=== PATIENT | female | born 1990 | race Caucasian/White ===

== ENCOUNTER 2019-05-17 19:58 | Emergency (ER) | payer OTHER ==
[~2019-05-17] VITALS: Ht 170.2 cm; Wt 47.6 kg
--- NOTE | 2019-05-17 20:50 | NUR ---
Patient is Has type 1 DM requesting for refill for Humalog to refill insulin pump.
[2019-05-17] MEDS ORDERED: INSULIN LISPRO 300 UNIT/3 ML VIAL SQ ONE (21:43)
[2019-05-17] MEDS: MISCELLANEOUS MED XX ONE (21:51)
--- NOTE | 2019-05-17 21:52 | NUR ---
Patient does not wish to proceed with medical care recommended by Dr. Weaver. Patient given information related to possible complications, up to and including , which could occur as a result of leaving the hospital at this time. Patient verbalizes understanding of risks involved due to leaving against medical advice. Patient has signed AMA form. Patient is ambulatory with steady gait. Refuses offer of assisted placement. Patient given list of available shelters in surrounding area. Patient provided hospital sandwich and juice per pt request.
[2019-05-17 21:56] VITALS: BP 114/77
== END 2019-05-17 21:56 | disposition left against medical advice (07) ==
LOC: ER 20:06
DX: E10.65 Type 1 diabetes mellitus with hyperglycemia (principal); F17.200 Nicotine dependence, unspecified, uncomplicated; F11.10 Opioid abuse, uncomplicated; F15.10 Other stimulant abuse, uncomplicated; F12.10 Cannabis abuse, uncomplicated; Z59.0 Homelessness
CPT/HCPCS: A4663

== ENCOUNTER 2019-08-25 16:40 | Inpatient (IN) | payer OTHER ==
[~2019-08-25] VITALS: Ht 170.2 cm; Wt 48.5 kg
[2019-08-25] MEDS ORDERED: NOVOLOG INSULIN PUMP (16:51)
[2019-08-25 17:00] LABS: BASOPHILS % (AUTO) 0.4 % (0.0-2.0); EOSINOPHILS % (AUTO) 0.1 % (0.0-7.0); HEMATOCRIT 30.3 % (31.2-41.9); HEMOGLOBIN 10.1 g/dL (10.9-14.3); LYMPHOCYTES # (AUTO) 1.2 K/uL (20.0-40.0); LYMPHOCYTES % (AUTO) 12.4 % (20.5-51.5); MEAN CORPUSCULAR HEMOGLOBIN 30.5 uug (24.7-32.8); MEAN CORPUSCULAR HGB CONC 33 g/dL (32.3-35.6); MEAN CORPUSCULAR VOLUME 91.7 fL (75.5-95.3); MONOCYTES # (AUTO) 0.6 K/uL (2.0-10.0); MONOCYTES % (AUTO) 6.2 % (0.0-11.0); NEUTROPHILS % (AUTO) 80.9 % (38.5-71.5); PLATELET COUNT (AUTO) 343 K/uL (179-408); WHITE BLOOD COUNT (AUTO) 9.9 K/uL (3.8-11.8)
[2019-08-25 17:08] LABS: CREATININE 0.7 mg/dL (0.6-1.3); POTASSIUM 4.1 mmol/L (3.5-5.1)
[2019-08-25] MEDS ORDERED: SWABABLE VALVE TRANSFER SET EA MC ONE (17:40)
[2019-08-25] MEDS ORDERED: IV NORMAL SALINE 250 ML IV ONE (17:41)
[2019-08-25] MEDS ORDERED: IOHEXOL 300MG/ML 100 ML INFUS..BTL ONE (17:41)
[2019-08-25] MEDS ORDERED: KETOROLAC TROMETHAMINE 15 MG INJ ONE (18:14)
[2019-08-25] MEDS ORDERED: ONDANSETRON 4 MG/2 ML VIAL IV ONE (18:15)
[2019-08-25] MEDS ORDERED: HYDROCODONE/APAP 5-325MG TABLET PO ONE (18:15)
[2019-08-25] MEDS ORDERED: HYDROCODONE/APAP 5-325MG TABLET ONE (18:15)
[2019-08-25] MEDS ORDERED: IV NORMAL SALINE 500 ML BAG IV ONE (18:15)
[2019-08-25] MEDS ORDERED: IV NORMAL SALINE 1000 ML BAG IV ONE (18:15)
[2019-08-25] MEDS ORDERED: KETOROLAC TROMETHAMINE 15 MG INJ IVP ONE (18:15)
[2019-08-25] MEDS ORDERED: ONDANSETRON 4 MG/2 ML VIAL ONE (18:19)
[2019-08-25] MEDS ORDERED: ONDANSETRON 4 MG/2 ML VIAL IV PRN (20:00)
[2019-08-25] MEDS ORDERED: Z GUARD REMEDY PASTE 57 GM TUBE TOP PRN (20:00)
[2019-08-25] MEDS ORDERED: MAGNESIUM HYDROXIDE 30 ML LIQUID UDC PO PRN (20:00)
[2019-08-25 20:07] LABS: BILIRUBIN,DIRECT 0.1 mg/dL (0.0-0.2); BILIRUBIN,TOTAL 0.2 mg/dL (0.2-1.0)
[2019-08-25 20:43] VITALS: BP 111/58
[2019-08-25] MEDS ORDERED: PIPERACILLIN/TAZOBACTAM/D5W 100 ML IV ONE (21:21)
[2019-08-25] MEDS: PIPERACILLIN SODIUM/TAZOBACTAM 3.375 G in IV DEXTROSE 5% 50 ML IV SCH (21:59)
[2019-08-25] MEDS: IV 1/2NS 1000 ML 1,000 ML IV PRN (22:00)
[2019-08-25] MEDS ORDERED: VANCOMYCIN IV 1,000 MG in IV NORMAL SALINE 250 ML IV SCH (22:00)
[2019-08-25] MEDS: HYDROCODONE/APAP 5-325MG TABLET PO PRN (22:25)
[2019-08-26] VITALS: BP 120/58
[2019-08-26] MEDS: BLOOD SUGAR DIAGNOSTIC 1 EACH STRIP VI SCH ×5 (00:50→21:56)
[2019-08-26] MEDS: INSULIN REGULAR, HUMAN 300 UNITS/3 ML VIAL SQ PRN ×2 (00:53→22:01)
[2019-08-26] MEDS: ACETAMINOPHEN 325 MG TABLET PO PRN (01:30)
[2019-08-26] MEDS: PIPERACILLIN SODIUM/TAZOBACTAM 3.375 G in IV DEXTROSE 5% 50 ML IV SCH ×3 (03:07→21:44)
[2019-08-26 04:17] VITALS: BP 115/62
[2019-08-26] MEDS: HYDROCODONE/APAP 5-325MG TABLET PO PRN (04:27)
[2019-08-26] MEDS ORDERED: OXYCODONE/APAP 5-325 MG TABLET PO PRN (06:00)
[2019-08-26] MEDS ORDERED: VANCOMYCIN IV 1,000 MG in IV NORMAL SALINE 250 ML IV ONE (06:30)
[2019-08-26 06:35] LABS: BASOPHILS % (AUTO) 0.3 % (0.0-2.0); EOSINOPHILS % (AUTO) 0.5 % (0.0-7.0); HEMATOCRIT 31.3 % (31.2-41.9); HEMOGLOBIN 10.3 g/dL (10.9-14.3); LYMPHOCYTES # (AUTO) 1.6 K/uL (20.0-40.0); LYMPHOCYTES % (AUTO) 16.4 % (20.5-51.5); MEAN CORPUSCULAR HEMOGLOBIN 30.6 uug (24.7-32.8); MEAN CORPUSCULAR HGB CONC 33 g/dL (32.3-35.6); MEAN CORPUSCULAR VOLUME 92.8 fL (75.5-95.3); MONOCYTES # (AUTO) 0.8 K/uL (2.0-10.0); MONOCYTES % (AUTO) 8.6 % (0.0-11.0); NEUTROPHILS # (AUTO) 7.1 K/uL (1.8-8.9); NEUTROPHILS % (AUTO) 74.2 % (38.5-71.5); PLATELET COUNT (AUTO) 380 K/uL (179-408); RED BLOOD CELL COUNT(AUTO) 3.37 MIL/uL (3.63-4.92); WHITE BLOOD COUNT (AUTO) 9.5 K/uL (3.8-11.8)
[2019-08-26 06:52] LABS: CREATININE 0.7 mg/dL (0.6-1.3); PHOSPHOROUS 2.9 mg/dL (2.5-4.9); POTASSIUM 4.2 mmol/L (3.5-5.1)
[2019-08-26 07:29] LABS: THYROID STIMULATING HORMONE 0.886 mIU/mL (0.358-3.740)
[2019-08-26] MEDS: INSULIN REGULAR, HUMAN 300 UNIT/3 ML VIAL SQ PRN ×3 (08:26→16:50)
[2019-08-26] MEDS ORDERED: INSULIN REGULAR, HUMAN 300 UNIT/3 ML VIAL SQ PRN (09:00)
[2019-08-26] MEDS ORDERED: DEXTROSE 50% 50 ML DISP.SYRIN IV PRN ×2 (09:00)
[2019-08-26] MEDS ORDERED: INSULIN REGULAR, HUMAN 300 UNITS/3 ML VIAL SQ PRN (09:00)
[2019-08-26] MEDS: MORPHINE SULFATE 2 MG/1 ML DISP.SYRIN IV PRN (09:32)
[2019-08-26 11:30] LABS: *BILIRUBIN,URIN NEGATIVE (NEGATIVE); *BLOOD, URINE NEGATIVE (NEGATIVE); *CLARITY,URINE CLEAR (CLEAR); *COLOR,URINE YELLOW (YELLOW); *KETONES,URINE NEGATIVE (NEGATIVE); *UROBILINOGEN,URINE 0.2 E.U./dl (NORMAL); LEUKOCYTE ESTERASE ,URINE NEGATIVE (NEGATIVE); NITRITE, URINE NEGATIVE (NEGATIVE); UGLUCOSE 2+ (NEGATIVE)
[2019-08-26] MEDS ORDERED: BLOOD SUGAR DIAGNOSTIC 1 EACH STRIP VI SCH (11:30)
[2019-08-26 11:36] VITALS: BP 112/65
[2019-08-26 11:48] LABS: BACTERIA,URINE NONE SEEN /HPF (NONE SEEN); RBC,URINE NONE SEEN /HPF (0-3); SQUAMOUS EPITHELIAL CELL,UR FEW /HPF (NONE SEEN); WBC,URINE 0-3 /HPF (0-3)
[2019-08-26 11:52] LABS: *AMPHETAMINE, URINE POSITIVE (NEGATIVE); *BARBITURATE, URINE NEGATIVE (NEGATIVE); *CANNABINOID, URINE NEGATIVE (NEGATIVE); *COCCAINE, URINE NEGATIVE (NEGATIVE); *OPIATE, URINE POSITIVE (NEGATIVE)
[2019-08-26] MEDS: KETOROLAC TROMETHAMINE 15 MG INJ IVP PRN (11:52)
[2019-08-26] MEDS: METHADONE HCL 10 MG TABLET PO SCH ×2 (13:46→16:48)
[2019-08-26] MEDS: GABAPENTIN 300 MG CAPSULE PO SCH ×2 (14:00→16:11)
[2019-08-26 16:08] VITALS: BP 93/63
[2019-08-26 18:10] LABS: *PHENCYCLIDINE SCREEN,URINE NEGATIVE (NEGATIVE)
[2019-08-26] MEDS: IV 1/2NS 1000 ML 1,000 ML IV PRN (18:22)
[2019-08-26] MEDS: VANCOMYCIN IV 750 MG in IV DEXTROSE 5% 250 ML IV SCH (19:55)
[2019-08-26 20:36] VITALS: BP 115/64
[2019-08-26] MEDS ORDERED: INSULIN GLARGINE,HUM 300 UNITS/3 ML CARTRIDGE SQ SCH (21:00)
[2019-08-27] VITALS: BP 94/59
[2019-08-27] MEDS: MORPHINE SULFATE 2 MG/1 ML DISP.SYRIN IV PRN ×3 (00:21→22:39)
[2019-08-27] MEDS: KETOROLAC TROMETHAMINE 15 MG INJ IVP PRN (02:11)
[2019-08-27 04:00] VITALS: BP 99/54
[2019-08-27] MEDS: PIPERACILLIN SODIUM/TAZOBACTAM 3.375 G in IV DEXTROSE 5% 50 ML IV SCH ×3 (06:33→22:07)
[2019-08-27] MEDS: BLOOD SUGAR DIAGNOSTIC 1 EACH STRIP VI SCH ×4 (06:51→21:52)
[2019-08-27] MEDS: INSULIN REGULAR, HUMAN 300 UNIT/3 ML VIAL SQ PRN ×3 (06:56→16:32)
[2019-08-27 07:39] LABS: EOSINOPHILS # (AUTO) 0.1 K/uL (0.0-0.7); MONOCYTES # (AUTO) 0.5 K/uL (2.0-10.0); NEUTROPHILS # (AUTO) 7.3 K/uL (1.8-8.9)
[2019-08-27 07:53] LABS: BASOPHILS % (AUTO) 0.4 % (0.0-2.0); EOSINOPHILS % (AUTO) 0.8 % (0.0-7.0); LYMPHOCYTES # (AUTO) 2.4 K/uL (20.0-40.0); LYMPHOCYTES % (AUTO) 23.1 % (20.5-51.5); MEAN CORPUSCULAR HEMOGLOBIN 30.9 uug (24.7-32.8); MEAN CORPUSCULAR HGB CONC 33 g/dL (32.3-35.6); MEAN CORPUSCULAR VOLUME 93.7 fL (75.5-95.3); NEUTROPHILS % (AUTO) 70.7 % (38.5-71.5); PLATELET COUNT (AUTO) 313 K/uL (179-408); RED BLOOD CELL COUNT(AUTO) 2.78 MIL/uL (3.63-4.92); WHITE BLOOD COUNT (AUTO) 10.4 K/uL (3.8-11.8)
[2019-08-27 07:54] LABS: HEMATOCRIT 26.1 % (31.2-41.9); HEMOGLOBIN 8.6 g/dL (10.9-14.3)
[2019-08-27] MEDS: VANCOMYCIN IV 750 MG in IV DEXTROSE 5% 250 ML IV SCH (08:15)
[2019-08-27] MEDS: METHADONE HCL 10 MG TABLET PO SCH ×2 (08:16→16:18)
[2019-08-27] MEDS: GABAPENTIN 300 MG CAPSULE PO SCH ×3 (08:17→16:21)
[2019-08-27 11:14] VITALS: BP 98/55
[2019-08-27] MEDS: IV 1/2NS 1000 ML 1,000 ML IV PRN (15:12)
[2019-08-27 15:39] VITALS: BP 122/67
[2019-08-27 20:08] VITALS: BP 120/76
[2019-08-27] MEDS: ACETAMINOPHEN 325 MG TABLET PO PRN (21:36)
[2019-08-27] MEDS: INSULIN REGULAR, HUMAN 300 UNITS/3 ML VIAL SQ PRN (21:50)
[2019-08-27] MEDS: INSULIN GLARGINE,HUM 300 UNITS/3 ML CARTRIDGE SQ SCH (21:51)
[2019-08-28] MEDS: VANCOMYCIN IV 750 MG in IV DEXTROSE 5% 250 ML IV SCH ×3 (00:06→15:55)
[2019-08-28 00:21] VITALS: BP 115/67
[2019-08-28 04:00] VITALS: BP 102/62
[2019-08-28] MEDS: ACETAMINOPHEN 325 MG TABLET PO PRN ×2 (04:55→18:09)
[2019-08-28] MEDS: HYDROCODONE/APAP 5-325MG TABLET PO PRN ×2 (04:55→13:30)
[2019-08-28] MEDS: IV 1/2NS 1000 ML 1,000 ML IV PRN ×2 (06:20→21:53)
[2019-08-28] MEDS: PIPERACILLIN SODIUM/TAZOBACTAM 3.375 G in IV DEXTROSE 5% 50 ML IV SCH ×3 (06:21→21:51)
[2019-08-28] MEDS: BLOOD SUGAR DIAGNOSTIC 1 EACH STRIP VI SCH ×4 (06:31→21:27)
[2019-08-28 06:56] LABS: CREATININE 0.9 mg/dL (0.6-1.3); MAGNESIUM 1.9 mg/dL (1.8-2.4); PHOSPHOROUS 3.4 mg/dL (2.5-4.9); POTASSIUM 4.5 mmol/L (3.5-5.1)
[2019-08-28 07:25] LABS: BASOPHILS # (AUTO) 0.1 K/uL (0.0-8.0); BASOPHILS % (AUTO) 0.4 % (0.0-2.0); EOSINOPHILS # (AUTO) 0.1 K/uL (0.0-0.7); HEMATOCRIT 28.7 % (31.2-41.9); HEMOGLOBIN 9.3 g/dL (10.9-14.3); LYMPHOCYTES # (AUTO) 2.9 K/uL (20.0-40.0); LYMPHOCYTES % (AUTO) 21.6 % (20.5-51.5); MEAN CORPUSCULAR HEMOGLOBIN 29.5 uug (24.7-32.8); MEAN CORPUSCULAR HGB CONC 33 g/dL (32.3-35.6); MEAN CORPUSCULAR VOLUME 90.9 fL (75.5-95.3); MONOCYTES # (AUTO) 0.8 K/uL (2.0-10.0); MONOCYTES % (AUTO) 6.4 % (0.0-11.0); NEUTROPHILS # (AUTO) 9.4 K/uL (1.8-8.9); NEUTROPHILS % (AUTO) 70.6 % (38.5-71.5); PLATELET COUNT (AUTO) 457 K/uL (179-408); RED BLOOD CELL COUNT(AUTO) 3.16 MIL/uL (3.63-4.92); WHITE BLOOD COUNT (AUTO) 13.3 K/uL (3.8-11.8)
[2019-08-28] MEDS: GABAPENTIN 300 MG CAPSULE PO SCH ×3 (08:15→17:00)
[2019-08-28] MEDS: METHADONE HCL 10 MG TABLET PO SCH ×2 (08:15→16:59)
[2019-08-28] MEDS: INSULIN REGULAR, HUMAN 300 UNIT/3 ML VIAL SQ PRN ×3 (08:19→17:05)
[2019-08-28 11:00] VITALS: BP 102/62
[2019-08-28] MEDS: MORPHINE SULFATE 2 MG/1 ML DISP.SYRIN IV PRN (11:51)
[2019-08-28 15:00] VITALS: BP 98/60
[2019-08-28 16:30] VITALS: BP 100/58
[2019-08-28 20:13] VITALS: BP 101/57
[2019-08-28] MEDS: TEMAZEPAM 7.5 MG CAPSULE PO SCH ×3 (21:00→23:18)
[2019-08-28] MEDS: INSULIN GLARGINE,HUM 300 UNITS/3 ML CARTRIDGE SQ SCH (21:31)
[2019-08-28] MEDS: INSULIN REGULAR, HUMAN 300 UNITS/3 ML VIAL SQ PRN (21:32)
[2019-08-28] MEDS ORDERED: IV NORMAL SALINE 500 ML IV ONE (23:45)
[2019-08-29] MEDS: ACETAMINOPHEN 325 MG TABLET PO PRN (01:15)
[2019-08-29] MEDS: ZOLPIDEM 5 MG TABLET PO PRN (01:23)
[2019-08-29] MEDS: MORPHINE SULFATE 2 MG/1 ML DISP.SYRIN IV PRN ×4 (03:51→19:22)
[2019-08-29] MEDS: PIPERACILLIN SODIUM/TAZOBACTAM 3.375 G in IV DEXTROSE 5% 50 ML IV SCH ×3 (05:00→22:10)
[2019-08-29 05:46] VITALS: BP 105/54
[2019-08-29] MEDS: VANCOMYCIN IV 750 MG in IV DEXTROSE 5% 250 ML IV SCH ×2 (06:02→20:10)
[2019-08-29] MEDS: BLOOD SUGAR DIAGNOSTIC 1 EACH STRIP VI SCH ×4 (06:31→20:20)
[2019-08-29] MEDS: INSULIN REGULAR, HUMAN 300 UNIT/3 ML VIAL SQ PRN ×3 (08:18→17:03)
[2019-08-29] MEDS: INSULIN GLARGINE,HUM 300 UNITS/3 ML CARTRIDGE SQ SCH ×2 (08:20→20:20)
[2019-08-29] MEDS: METHADONE HCL 10 MG TABLET PO SCH ×2 (08:26→17:06)
[2019-08-29] MEDS: GABAPENTIN 300 MG CAPSULE PO SCH ×3 (08:27→17:05)
[2019-08-29 11:32] VITALS: BP 109/55
[2019-08-29] MEDS ORDERED: [UNRECOGNIZED DRUG - OTHER] XX PRN (13:15)
[2019-08-29] MEDS ORDERED: DEXTROSE 50% 50 ML DISP.SYRIN IV PRN (13:15)
[2019-08-29 15:44] VITALS: BP 112/67
[2019-08-29] MEDS: MICAFUNGIN SODIUM 100 MG in IV NORMAL SALINE 100 ML IV SCH (15:47)
[2019-08-29] MEDS: KETOROLAC TROMETHAMINE 15 MG INJ IVP PRN (15:51)
[2019-08-29 20:17] VITALS: BP 110/62
[2019-08-29] MEDS: INSULIN REGULAR, HUMAN 300 UNITS/3 ML VIAL SQ PRN (20:19)
[2019-08-29] MEDS: HYDROCODONE/APAP 5-325MG TABLET PO PRN (21:06)
[2019-08-29] MEDS: TEMAZEPAM 15 MG CAPSULE PO PRN (22:10)
[2019-08-30] MEDS: IV NS 1000 ML 1,000 ML IV PRN ×2 (03:58→17:10)
[2019-08-30] MEDS: PIPERACILLIN SODIUM/TAZOBACTAM 3.375 G in IV DEXTROSE 5% 50 ML IV SCH (05:41)
[2019-08-30 06:24] VITALS: BP 110/64
[2019-08-30] MEDS: BLOOD SUGAR DIAGNOSTIC 1 EACH STRIP VI SCH ×5 (06:34→20:42)
[2019-08-30] MEDS: MORPHINE SULFATE 2 MG/1 ML DISP.SYRIN IV PRN ×2 (07:36→16:47)
[2019-08-30] MEDS: INSULIN REGULAR, HUMAN 300 UNIT/3 ML VIAL SQ PRN ×3 (07:41→16:42)
[2019-08-30] MEDS: INSULIN GLARGINE,HUM 300 UNITS/3 ML CARTRIDGE SQ SCH ×2 (08:37→20:46)
[2019-08-30] MEDS: GABAPENTIN 300 MG CAPSULE PO SCH ×3 (08:37→16:42)
[2019-08-30] MEDS: METHADONE HCL 10 MG TABLET PO SCH ×2 (08:41→19:00)
[2019-08-30 11:30] VITALS: BP 104/63
[2019-08-30] MEDS: HYDROCODONE/APAP 5-325MG TABLET PO PRN ×2 (12:23→21:45)
[2019-08-30] MEDS ORDERED: METHADONE HCL 10 MG TABLET PO ONE (12:45)
[2019-08-30] MEDS: CLINDAMYCIN PHOSPHATE IV 900 MG in IV DEXTROSE 5% 100 ML IV SCH ×2 (13:58→21:46)
[2019-08-30] MEDS: MICAFUNGIN SODIUM 100 MG in IV NORMAL SALINE 100 ML IV SCH (15:05)
[2019-08-30 15:38] VITALS: BP 115/68
[2019-08-30] MEDS: CEFEPIME HCL 2 G in IV DEXTROSE 5% 100 ML IV SCH ×2 (16:22→23:50)
[2019-08-30 20:03] VITALS: BP 113/65
[2019-08-30] MEDS: INSULIN REGULAR, HUMAN 300 UNITS/3 ML VIAL SQ PRN (20:47)
[2019-08-30] MEDS ORDERED: METHADONE HCL 10 MG TABLET PO SCH (21:00)
[2019-08-31] MEDS: MORPHINE SULFATE 2 MG/1 ML DISP.SYRIN IV PRN ×3 (01:17→21:44)
[2019-08-31] MEDS: TEMAZEPAM 15 MG CAPSULE PO PRN (02:01)
[2019-08-31] MEDS: IV NS 1000 ML 1,000 ML IV PRN ×3 (02:58→22:44)
[2019-08-31] MEDS: CLINDAMYCIN PHOSPHATE IV 900 MG in IV DEXTROSE 5% 100 ML IV SCH ×3 (05:54→21:26)
[2019-08-31 06:30] VITALS: BP 105/64
[2019-08-31] MEDS: BLOOD SUGAR DIAGNOSTIC 1 EACH STRIP VI SCH ×4 (06:38→20:21)
[2019-08-31] MEDS: INSULIN REGULAR, HUMAN 300 UNIT/3 ML VIAL SQ PRN ×3 (07:34→16:53)
[2019-08-31] MEDS: CEFEPIME HCL 2 G in IV DEXTROSE 5% 100 ML IV SCH ×3 (07:36→23:00)
[2019-08-31] MEDS ORDERED: IOHEXOL 300MG/ML 100 ML INFUS..BTL ONE (07:43)
[2019-08-31] MEDS ORDERED: SWABABLE VALVE TRANSFER SET EA MC ONE (07:43)
[2019-08-31] MEDS ORDERED: IV NORMAL SALINE 250 ML IV ONE (07:43)
[2019-08-31] MEDS: HYDROCODONE/APAP 5-325MG TABLET PO PRN (08:03)
[2019-08-31] MEDS: INSULIN GLARGINE,HUM 300 UNITS/3 ML CARTRIDGE SQ SCH ×2 (08:56→20:29)
[2019-08-31] MEDS: GABAPENTIN 300 MG CAPSULE PO SCH ×3 (08:59→16:54)
[2019-08-31] MEDS: METHADONE HCL 10 MG TABLET PO SCH ×2 (08:59→16:54)
[2019-08-31 09:48] LABS: BASOPHILS # (AUTO) 0.1 K/uL (0.0-8.0); BASOPHILS % (AUTO) 0.7 % (0.0-2.0); EOSINOPHILS # (AUTO) 0.2 K/uL (0.0-0.7); EOSINOPHILS % (AUTO) 1.8 % (0.0-7.0); HEMATOCRIT 23.3 % (31.2-41.9); HEMOGLOBIN 7.6 g/dL (10.9-14.3); LYMPHOCYTES # (AUTO) 2.2 K/uL (20.0-40.0); LYMPHOCYTES % (AUTO) 18.2 % (20.5-51.5); MEAN CORPUSCULAR HGB CONC 33 g/dL (32.3-35.6); MEAN CORPUSCULAR VOLUME 91.8 fL (75.5-95.3); MONOCYTES # (AUTO) 0.8 K/uL (2.0-10.0); MONOCYTES % (AUTO) 6.8 % (0.0-11.0); NEUTROPHILS # (AUTO) 8.9 K/uL (1.8-8.9); NEUTROPHILS % (AUTO) 72.5 % (38.5-71.5); PLATELET COUNT (AUTO) 532 K/uL (179-408); RED BLOOD CELL COUNT(AUTO) 2.54 MIL/uL (3.63-4.92); WHITE BLOOD COUNT (AUTO) 12.3 K/uL (3.8-11.8)
[2019-08-31 10:08] LABS: CREATININE 0.7 mg/dL (0.6-1.3); MAGNESIUM 1.8 mg/dL (1.8-2.4); PHOSPHOROUS 3.7 mg/dL (2.5-4.9)
[2019-08-31 10:50] VITALS: BP 101/52
[2019-08-31] MEDS: MICAFUNGIN SODIUM 100 MG in IV NORMAL SALINE 100 ML IV SCH (15:01)
[2019-08-31 16:04] VITALS: BP 106/65
[2019-08-31] MEDS: ACETAMINOPHEN 325 MG TABLET PO PRN (20:07)
[2019-08-31] MEDS: INSULIN REGULAR, HUMAN 300 UNITS/3 ML VIAL SQ PRN (20:30)
[2019-08-31 20:41] VITALS: BP 105/64
[2019-08-31] MEDS: ZOLPIDEM 5 MG TABLET PO PRN (21:26)
[2019-09-01] VITALS (10 sets, daily range): BP systolic 64–104; BP diastolic 46–67
[2019-09-01] MEDS: HYDROCODONE/APAP 5-325MG TABLET PO PRN ×2 (01:06→13:42)
[2019-09-01] MEDS: CLINDAMYCIN PHOSPHATE IV 900 MG in IV DEXTROSE 5% 100 ML IV SCH ×3 (05:04→21:25)
[2019-09-01] MEDS: IV NS 1000 ML 1,000 ML IV PRN ×2 (05:29→22:54)
[2019-09-01] MEDS: BLOOD SUGAR DIAGNOSTIC 1 EACH STRIP VI SCH ×4 (06:36→21:46)
[2019-09-01 06:45] LABS: BASOPHILS % (AUTO) 0.4 % (0.0-2.0); EOSINOPHILS # (AUTO) 0.2 K/uL (0.0-0.7); EOSINOPHILS % (AUTO) 1.7 % (0.0-7.0); HEMATOCRIT 22.5 % (31.2-41.9); LYMPHOCYTES # (AUTO) 2.5 K/uL (20.0-40.0); MEAN CORPUSCULAR HEMOGLOBIN 29.8 uug (24.7-32.8); MEAN CORPUSCULAR HGB CONC 32 g/dL (32.3-35.6); MEAN CORPUSCULAR VOLUME 92.1 fL (75.5-95.3); MONOCYTES # (AUTO) 0.8 K/uL (2.0-10.0); MONOCYTES % (AUTO) 7.7 % (0.0-11.0); NEUTROPHILS # (AUTO) 6.6 K/uL (1.8-8.9); NEUTROPHILS % (AUTO) 65.2 % (38.5-71.5); PLATELET COUNT (AUTO) 539 K/uL (179-408); WHITE BLOOD COUNT (AUTO) 10.1 K/uL (3.8-11.8)
[2019-09-01] MEDS: CEFEPIME HCL 2 G in IV DEXTROSE 5% 100 ML IV SCH ×3 (07:02)
[2019-09-01 07:06] LABS: HEMOGLOBIN 7.3 g/dL (10.9-14.3); RED BLOOD CELL COUNT(AUTO) 2.44 MIL/uL (3.63-4.92)
[2019-09-01 08:04] LABS: CREATININE 0.6 mg/dL (0.6-1.3); MAGNESIUM 2.1 mg/dL (1.8-2.4); PHOSPHOROUS 4.2 mg/dL (2.5-4.9)
[2019-09-01] MEDS: METHADONE HCL 10 MG TABLET PO SCH ×2 (08:13→16:51)
[2019-09-01] MEDS: GABAPENTIN 300 MG CAPSULE PO SCH ×3 (08:13→16:51)
[2019-09-01] MEDS: INSULIN GLARGINE,HUM 300 UNITS/3 ML CARTRIDGE SQ SCH ×2 (11:10→21:53)
[2019-09-01] MEDS: MORPHINE SULFATE 2 MG/1 ML DISP.SYRIN IV PRN ×2 (11:11→22:39)
[2019-09-01] MEDS: INSULIN REGULAR, HUMAN 300 UNIT/3 ML VIAL SQ PRN (16:57)
[2019-09-01] MEDS: MICAFUNGIN SODIUM 100 MG in IV NORMAL SALINE 100 ML IV SCH (19:40)
[2019-09-01] MEDS: INSULIN REGULAR, HUMAN 300 UNITS/3 ML VIAL SQ PRN (21:56)
[2019-09-01] MEDS: TEMAZEPAM 15 MG CAPSULE PO PRN (23:34)
[2019-09-02 05:03] VITALS: BP 105/54
[2019-09-02] MEDS: CLINDAMYCIN PHOSPHATE IV 900 MG in IV DEXTROSE 5% 100 ML IV SCH ×4 (05:22→22:29)
[2019-09-02 06:14] LABS: BASOPHILS % (AUTO) 0.6 % (0.0-2.0); EOSINOPHILS # (AUTO) 0.2 K/uL (0.0-0.7); EOSINOPHILS % (AUTO) 2.7 % (0.0-7.0); HEMATOCRIT 25.3 % (31.2-41.9); HEMOGLOBIN 8.4 g/dL (10.9-14.3); LYMPHOCYTES # (AUTO) 2.2 K/uL (20.0-40.0); LYMPHOCYTES % (AUTO) 27.5 % (20.5-51.5); MEAN CORPUSCULAR HEMOGLOBIN 29.3 uug (24.7-32.8); MEAN CORPUSCULAR HGB CONC 33 g/dL (32.3-35.6); MEAN CORPUSCULAR VOLUME 88.4 fL (75.5-95.3); MONOCYTES # (AUTO) 0.6 K/uL (2.0-10.0); MONOCYTES % (AUTO) 8.1 % (0.0-11.0); NEUTROPHILS # (AUTO) 4.9 K/uL (1.8-8.9); NEUTROPHILS % (AUTO) 61.1 % (38.5-71.5); PLATELET COUNT (AUTO) 549 K/uL (179-408); RED BLOOD CELL COUNT(AUTO) 2.87 MIL/uL (3.63-4.92)
[2019-09-02 06:36] LABS: CREATININE 0.7 mg/dL (0.6-1.3); MAGNESIUM 1.8 mg/dL (1.8-2.4); PHOSPHOROUS 4.1 mg/dL (2.5-4.9); POTASSIUM 4.2 mmol/L (3.5-5.1)
[2019-09-02] MEDS: IV NS 1000 ML 1,000 ML IV PRN (06:38)
[2019-09-02] MEDS: MORPHINE SULFATE 2 MG/1 ML DISP.SYRIN IV PRN (06:42)
[2019-09-02] MEDS: BLOOD SUGAR DIAGNOSTIC 1 EACH STRIP VI SCH ×4 (06:50→21:54)
[2019-09-02] MEDS: CEFEPIME HCL 2 G in IV DEXTROSE 5% 100 ML IV SCH ×2 (08:11→17:07)
[2019-09-02] MEDS: GABAPENTIN 300 MG CAPSULE PO SCH ×3 (08:12→17:07)
[2019-09-02] MEDS: METHADONE HCL 10 MG TABLET PO SCH ×2 (08:12→17:07)
[2019-09-02] MEDS: INSULIN REGULAR, HUMAN 300 UNIT/3 ML VIAL SQ PRN ×2 (08:15→12:23)
[2019-09-02] MEDS: INSULIN GLARGINE,HUM 300 UNITS/3 ML CARTRIDGE SQ SCH ×2 (08:16→21:51)
[2019-09-02 11:06] VITALS: BP 98/61
[2019-09-02 11:30] LABS: LYMPHOCYTES % (MANUAL) 35 % (20-40); MONOCYTES % (MANUAL) 2 % (2-10); NEUTROPHILS % (MANUAL) 63 % (42-75)
[2019-09-02] MEDS: ALPRAZOLAM 0.5 MG TABLET PO PRN (12:20)
[2019-09-02 15:41] VITALS: BP 100/56
[2019-09-02] MEDS: MICAFUNGIN SODIUM 100 MG in IV NORMAL SALINE 100 ML IV SCH (15:53)
[2019-09-02 19:30] VITALS: BP 104/60
[2019-09-02] MEDS: INSULIN REGULAR, HUMAN 300 UNITS/3 ML VIAL SQ PRN (21:53)
[2019-09-03] MEDS: CEFEPIME HCL 2 G in IV DEXTROSE 5% 100 ML IV SCH ×2
[2019-09-03] MEDS: ALPRAZOLAM 0.5 MG TABLET PO PRN ×3 (01:04→17:38)
[2019-09-03] MEDS: ACETAMINOPHEN 325 MG TABLET PO PRN ×2 (02:28→20:12)
[2019-09-03] MEDS: ZOLPIDEM 5 MG TABLET PO PRN (02:46)
[2019-09-03] MEDS ORDERED: CLINDAMYCIN HCL 300 MG CAPSULE ONE (04:26)
[2019-09-03] MEDS ORDERED: AMOXICILLIN-CLAVUL 875-125MG TABLET ONE (04:26)
[2019-09-03] MEDS: CLINDAMYCIN HCL 300 MG CAPSULE PO SCH ×4 (04:51→17:39)
[2019-09-03] MEDS: AMOXICILLIN-CLAVUL 875-125MG TABLET PO SCH ×2 (04:51→17:39)
[2019-09-03 04:56] VITALS: BP 96/50
[2019-09-03] MEDS: BLOOD SUGAR DIAGNOSTIC 1 EACH STRIP VI SCH ×4 (06:41→21:15)
[2019-09-03 06:59] LABS: CREATININE 0.7 mg/dL (0.6-1.3); MAGNESIUM 1.9 mg/dL (1.8-2.4); PHOSPHOROUS 4.8 mg/dL (2.5-4.9); POTASSIUM 4.8 mmol/L (3.5-5.1)
[2019-09-03] MEDS: INSULIN GLARGINE,HUM 300 UNITS/3 ML CARTRIDGE SQ SCH ×3 (09:00→21:14)
[2019-09-03 09:17] LABS: BASOPHILS # (AUTO) 0.1 K/uL (0.0-8.0); BASOPHILS % (AUTO) 0.7 % (0.0-2.0); EOSINOPHILS # (AUTO) 0.3 K/uL (0.0-0.7); EOSINOPHILS % (AUTO) 2.6 % (0.0-7.0); LYMPHOCYTES # (AUTO) 2.3 K/uL (20.0-40.0); LYMPHOCYTES % (AUTO) 22.4 % (20.5-51.5); MEAN CORPUSCULAR HEMOGLOBIN 29.4 uug (24.7-32.8); MEAN CORPUSCULAR HGB CONC 32 g/dL (32.3-35.6); MEAN CORPUSCULAR VOLUME 90.8 fL (75.5-95.3); MONOCYTES # (AUTO) 0.7 K/uL (2.0-10.0); MONOCYTES % (AUTO) 6.8 % (0.0-11.0); NEUTROPHILS % (AUTO) 67.5 % (38.5-71.5); PLATELET COUNT (AUTO) 656 K/uL (179-408); RED BLOOD CELL COUNT(AUTO) 3.34 MIL/uL (3.63-4.92)
[2019-09-03] MEDS: GABAPENTIN 300 MG CAPSULE PO SCH ×3 (09:20→17:39)
[2019-09-03] MEDS: METHADONE HCL 10 MG TABLET PO SCH ×2 (09:21→17:59)
[2019-09-03 09:42] LABS: HEMATOCRIT 30.4 % (31.2-41.9); HEMOGLOBIN 9.8 g/dL (10.9-14.3); WHITE BLOOD COUNT (AUTO) 10.3 K/uL (3.8-11.8)
[2019-09-03 11:30] VITALS: BP 100/61
[2019-09-03] MEDS: MORPHINE SULFATE 2 MG/1 ML DISP.SYRIN IV PRN ×2 (11:37→20:33)
[2019-09-03] MEDS: INSULIN REGULAR, HUMAN 300 UNIT/3 ML VIAL SQ PRN ×3 (13:06→21:14)
[2019-09-03 16:00] VITALS: BP 102/62
[2019-09-03] MEDS: MICAFUNGIN SODIUM 100 MG in IV NORMAL SALINE 100 ML IV SCH (17:37)
[2019-09-03 20:10] VITALS: BP 113/46
[2019-09-03 20:27] VITALS: BP 110/66
[2019-09-03] MEDS: IV NS 1000 ML 1,000 ML IV PRN (20:44)
[2019-09-03] MEDS: CLINDAMYCIN PHOSPHATE IV 900 MG in IV DEXTROSE 5% 100 ML IV SCH (22:23)
[2019-09-03] MEDS: CEFEPIME HCL 1 G in IV DEXTROSE 5% 50 ML IV SCH (22:24)
[2019-09-04 04:15] VITALS: BP 101/63
[2019-09-04] MEDS: MORPHINE SULFATE 2 MG/1 ML DISP.SYRIN IV PRN ×3 (04:19→21:43)
[2019-09-04] MEDS: CLINDAMYCIN PHOSPHATE IV 900 MG in IV DEXTROSE 5% 100 ML IV SCH ×3 (05:11→21:04)
[2019-09-04] MEDS: IV NS 1000 ML 1,000 ML IV PRN ×2 (05:34→19:28)
[2019-09-04] MEDS: CEFEPIME HCL 1 G in IV DEXTROSE 5% 50 ML IV SCH ×3 (05:35→22:13)
[2019-09-04] MEDS: BLOOD SUGAR DIAGNOSTIC 1 EACH STRIP VI SCH ×4 (06:35→21:37)
[2019-09-04] MEDS: INSULIN REGULAR, HUMAN 300 UNITS/3 ML VIAL SQ PRN ×2 (06:35→21:39)
[2019-09-04 06:54] LABS: BASOPHILS % (AUTO) 0.4 % (0.0-2.0); EOSINOPHILS # (AUTO) 0.3 K/uL (0.0-0.7); HEMATOCRIT 30.3 % (31.2-41.9); HEMOGLOBIN 9.9 g/dL (10.9-14.3); LYMPHOCYTES # (AUTO) 2.9 K/uL (20.0-40.0); LYMPHOCYTES % (AUTO) 20.4 % (20.5-51.5); MEAN CORPUSCULAR HEMOGLOBIN 29.6 uug (24.7-32.8); MEAN CORPUSCULAR HGB CONC 33 g/dL (32.3-35.6); MEAN CORPUSCULAR VOLUME 90.5 fL (75.5-95.3); MONOCYTES # (AUTO) 0.7 K/uL (2.0-10.0); NEUTROPHILS # (AUTO) 10.1 K/uL (1.8-8.9); NEUTROPHILS % (AUTO) 72.2 % (38.5-71.5); PLATELET COUNT (AUTO) 729 K/uL (179-408); RED BLOOD CELL COUNT(AUTO) 3.34 MIL/uL (3.63-4.92)
[2019-09-04 06:59] LABS: CREATININE 0.7 mg/dL (0.6-1.3); MAGNESIUM 2.2 mg/dL (1.8-2.4); PHOSPHOROUS 4.3 mg/dL (2.5-4.9); POTASSIUM 4.1 mmol/L (3.5-5.1)
[2019-09-04] MEDS: INSULIN GLARGINE,HUM 300 UNITS/3 ML CARTRIDGE SQ SCH ×2 (09:07→21:39)
[2019-09-04] MEDS: INSULIN REGULAR, HUMAN 300 UNIT/3 ML VIAL SQ PRN ×3 (09:17→17:41)
[2019-09-04] MEDS: METHADONE HCL 10 MG TABLET PO SCH ×2 (09:21→17:16)
[2019-09-04] MEDS: GABAPENTIN 300 MG CAPSULE PO SCH ×3 (09:21→17:16)
[2019-09-04 11:24] VITALS: BP 102/61
[2019-09-04] MEDS: ALPRAZOLAM 0.5 MG TABLET PO PRN (13:58)
[2019-09-04] MEDS: MICAFUNGIN SODIUM 100 MG in IV NORMAL SALINE 100 ML IV SCH (15:45)
[2019-09-04 15:46] VITALS: BP 93/56
[2019-09-04 20:01] VITALS: BP 114/67
[2019-09-04] MEDS: ACETAMINOPHEN 325 MG TABLET PO PRN (21:04)
[2019-09-05] MEDS: ALPRAZOLAM 0.5 MG TABLET PO PRN ×3 (01:28→21:03)
[2019-09-05 04:02] VITALS: BP 96/57
[2019-09-05] MEDS: CLINDAMYCIN PHOSPHATE IV 900 MG in IV DEXTROSE 5% 100 ML IV SCH (05:04)
[2019-09-05] MEDS: IV NS 1000 ML 1,000 ML IV PRN ×2 (05:44→15:35)
[2019-09-05] MEDS: CEFEPIME HCL 1 G in IV DEXTROSE 5% 50 ML IV SCH (05:44)
[2019-09-05] MEDS: BLOOD SUGAR DIAGNOSTIC 1 EACH STRIP VI SCH ×4 (06:34→20:51)
[2019-09-05 06:54] LABS: BASOPHILS # (AUTO) 0.2 K/uL (0.0-8.0); EOSINOPHILS # (AUTO) 0.5 K/uL (0.0-0.7); EOSINOPHILS % (AUTO) 2.9 % (0.0-7.0); HEMATOCRIT 30.8 % (31.2-41.9); HEMOGLOBIN 9.9 g/dL (10.9-14.3); LYMPHOCYTES # (AUTO) 3.3 K/uL (20.0-40.0); LYMPHOCYTES % (AUTO) 19.2 % (20.5-51.5); MEAN CORPUSCULAR HEMOGLOBIN 28.7 uug (24.7-32.8); MEAN CORPUSCULAR HGB CONC 32 g/dL (32.3-35.6); MEAN CORPUSCULAR VOLUME 89.6 fL (75.5-95.3); MONOCYTES # (AUTO) 0.8 K/uL (2.0-10.0); MONOCYTES % (AUTO) 4.7 % (0.0-11.0); NEUTROPHILS # (AUTO) 12.6 K/uL (1.8-8.9); NEUTROPHILS % (AUTO) 72.2 % (38.5-71.5); PLATELET COUNT (AUTO) 540 K/uL (179-408); RED BLOOD CELL COUNT(AUTO) 3.44 MIL/uL (3.63-4.92); WHITE BLOOD COUNT (AUTO) 17.4 K/uL (3.8-11.8)
[2019-09-05] MEDS: INSULIN REGULAR, HUMAN 300 UNIT/3 ML VIAL SQ PRN ×3 (07:58→17:19)
[2019-09-05] MEDS: GABAPENTIN 300 MG CAPSULE PO SCH ×3 (08:12→17:14)
[2019-09-05] MEDS: METHADONE HCL 10 MG TABLET PO SCH ×2 (08:12→17:16)
[2019-09-05] MEDS: INSULIN GLARGINE,HUM 300 UNITS/3 ML CARTRIDGE SQ SCH ×2 (09:24→20:52)
[2019-09-05] MEDS ORDERED: IV NS 1000 ML 1,000 ML IV ONE (10:30)
[2019-09-05 11:14] LABS: BASOPHILS # (AUTO) 0.1 K/uL (0.0-8.0); BASOPHILS % (AUTO) 0.4 % (0.0-2.0); EOSINOPHILS # (AUTO) 0.4 K/uL (0.0-0.7); EOSINOPHILS % (AUTO) 2.7 % (0.0-7.0); HEMATOCRIT 30.9 % (31.2-41.9); LYMPHOCYTES # (AUTO) 2.1 K/uL (20.0-40.0); LYMPHOCYTES % (AUTO) 14.1 % (20.5-51.5); MEAN CORPUSCULAR HEMOGLOBIN 28.7 uug (24.7-32.8); MEAN CORPUSCULAR HGB CONC 32 g/dL (32.3-35.6); MEAN CORPUSCULAR VOLUME 88.7 fL (75.5-95.3); MONOCYTES # (AUTO) 0.7 K/uL (2.0-10.0); MONOCYTES % (AUTO) 4.6 % (0.0-11.0); NEUTROPHILS # (AUTO) 11.5 K/uL (1.8-8.9); NEUTROPHILS % (AUTO) 78.2 % (38.5-71.5); PLATELET COUNT (AUTO) 655 K/uL (179-408); RED BLOOD CELL COUNT(AUTO) 3.48 MIL/uL (3.63-4.92); WHITE BLOOD COUNT (AUTO) 14.7 K/uL (3.8-11.8)
[2019-09-05 11:17] LABS: CREATININE 0.7 mg/dL (0.6-1.3); MAGNESIUM 1.9 mg/dL (1.8-2.4); PHOSPHOROUS 2.7 mg/dL (2.5-4.9); POTASSIUM 4.3 mmol/L (3.5-5.1)
[2019-09-05 11:49] VITALS: BP 109/66
[2019-09-05] MEDS: MORPHINE SULFATE 2 MG/1 ML DISP.SYRIN IV PRN (13:33)
[2019-09-05] MEDS: LEVOFLOXACIN 500 MG TABLET PO SCH (14:24)
[2019-09-05 16:10] VITALS: BP 108/68
[2019-09-05] MEDS: ACETAMINOPHEN 325 MG TABLET PO PRN (16:27)
[2019-09-05 20:36] VITALS: BP 118/71
[2019-09-05] MEDS: VORICONAZOLE 200 MG TABLET PO SCH (20:49)
[2019-09-05] MEDS: LINEZOLID 600 MG TABLET PO SCH (20:49)
[2019-09-05] MEDS: INSULIN REGULAR, HUMAN 300 UNITS/3 ML VIAL SQ PRN (20:53)
[2019-09-06] MEDS: MORPHINE SULFATE 2 MG/1 ML DISP.SYRIN IV PRN ×2 (00:01→11:26)
[2019-09-06] MEDS: IV NS 1000 ML 1,000 ML IV PRN ×2 (00:01→07:49)
[2019-09-06] MEDS: ACETAMINOPHEN 325 MG TABLET PO PRN (00:29)
[2019-09-06 00:51] VITALS: BP 98/62
[2019-09-06] MEDS: ZOLPIDEM 5 MG TABLET PO PRN (02:59)
[2019-09-06 04:30] VITALS: BP 102/66
[2019-09-06 06:28] LABS: BASOPHILS # (AUTO) 0.1 K/uL (0.0-8.0); BASOPHILS % (AUTO) 0.6 % (0.0-2.0); EOSINOPHILS # (AUTO) 0.4 K/uL (0.0-0.7); EOSINOPHILS % (AUTO) 3.1 % (0.0-7.0); HEMATOCRIT 30.6 % (31.2-41.9); HEMOGLOBIN 9.7 g/dL (10.9-14.3); LYMPHOCYTES # (AUTO) 2.1 K/uL (20.0-40.0); LYMPHOCYTES % (AUTO) 15.5 % (20.5-51.5); MEAN CORPUSCULAR HEMOGLOBIN 28.4 uug (24.7-32.8); MEAN CORPUSCULAR HGB CONC 32 g/dL (32.3-35.6); MEAN CORPUSCULAR VOLUME 89.5 fL (75.5-95.3); MONOCYTES # (AUTO) 0.6 K/uL (2.0-10.0); MONOCYTES % (AUTO) 4.4 % (0.0-11.0); NEUTROPHILS # (AUTO) 10.2 K/uL (1.8-8.9); NEUTROPHILS % (AUTO) 76.4 % (38.5-71.5); PLATELET COUNT (AUTO) 605 K/uL (179-408); RED BLOOD CELL COUNT(AUTO) 3.42 MIL/uL (3.63-4.92); WHITE BLOOD COUNT (AUTO) 13.4 K/uL (3.8-11.8)
[2019-09-06 06:39] LABS: CREATININE 0.6 mg/dL (0.6-1.3); MAGNESIUM 1.7 mg/dL (1.8-2.4); PHOSPHOROUS 4.2 mg/dL (2.5-4.9)
[2019-09-06] MEDS: BLOOD SUGAR DIAGNOSTIC 1 EACH STRIP VI SCH ×4 (07:53→20:25)
[2019-09-06] MEDS: INSULIN REGULAR, HUMAN 300 UNIT/3 ML VIAL SQ PRN ×3 (07:57→16:50)
[2019-09-06] MEDS: GABAPENTIN 300 MG CAPSULE PO SCH ×3 (09:05→17:20)
[2019-09-06] MEDS: LINEZOLID 600 MG TABLET PO SCH ×2 (09:05→20:24)
[2019-09-06] MEDS: VORICONAZOLE 200 MG TABLET PO SCH ×2 (09:05→20:24)
[2019-09-06] MEDS: METHADONE HCL 10 MG TABLET PO SCH ×2 (09:05→17:21)
[2019-09-06] MEDS: INSULIN GLARGINE,HUM 300 UNITS/3 ML CARTRIDGE SQ SCH ×2 (09:20→20:26)
[2019-09-06] MEDS ORDERED: MAGNESIUM OXIDE 400 MG TABLET PO ONE (10:00)
[2019-09-06 11:30] VITALS: BP 113/67
[2019-09-06] MEDS ORDERED: HYDROCODONE/APAP 5-325MG TABLET PO PRN (13:30)
[2019-09-06] MEDS: LEVOFLOXACIN 500 MG TABLET PO SCH (14:23)
[2019-09-06] MEDS: ALPRAZOLAM 0.5 MG TABLET PO PRN ×2 (15:31→22:05)
[2019-09-06 15:44] VITALS: BP 98/54
[2019-09-06 19:48] VITALS: BP 107/62
[2019-09-07 00:09] VITALS: BP 97/56
[2019-09-07 04:09] VITALS: BP 104/59
[2019-09-07] MEDS: BLOOD SUGAR DIAGNOSTIC 1 EACH STRIP VI SCH ×2 (06:35→12:40)
[2019-09-07] MEDS: METHADONE HCL 10 MG TABLET PO SCH (08:52)
[2019-09-07] MEDS: LINEZOLID 600 MG TABLET PO SCH (08:53)
[2019-09-07] MEDS: VORICONAZOLE 200 MG TABLET PO SCH (08:53)
[2019-09-07] MEDS: GABAPENTIN 300 MG CAPSULE PO SCH ×2 (08:53→12:39)
[2019-09-07] MEDS: INSULIN GLARGINE,HUM 300 UNITS/3 ML CARTRIDGE SQ SCH (08:57)
[2019-09-07 11:59] VITALS: BP 107/69
[2019-09-07] MEDS: ALPRAZOLAM 0.5 MG TABLET PO PRN (12:39)
[2019-09-07] MEDS: INSULIN REGULAR, HUMAN 300 UNIT/3 ML VIAL SQ PRN (12:43)
[2019-09-07] MEDS: LEVOFLOXACIN 500 MG TABLET PO SCH (14:31)
== END 2019-09-07 15:30 | disposition home or self-care (01) | DRG 720 ==
LOC: ER 16:41 → TELE3 19:53 → MEDSURG3 08-28 11:10 → TELE3 09-05 13:30
PROVIDERS: ADMIT Student in an Organized Health Care Education/Training Program; ATTEND Student in an Organized Health Care Education/Training Program
PROC: 05H933Z Insertion of Infusion Device into Right Brachial Vein, Percutaneous Approach (ICD-10-PCS; principal; 2019-08-27)
PROC: 05HA33Z Insertion of Infusion Device into Left Brachial Vein, Percutaneous Approach (ICD-10-PCS; 2019-08-30)
PROC: 30233N1 Transfusion of Nonautologous Red Blood Cells into Peripheral Vein, Percutaneous Approach (ICD-10-PCS; 2019-09-01)
PROC: 05HC33Z Insertion of Infusion Device into Left Basilic Vein, Percutaneous Approach (ICD-10-PCS; 2019-09-03)
PROC: 0J963ZX Drainage of Chest Subcutaneous Tissue and Fascia, Percutaneous Approach, Diagnostic (ICD-10-PCS; 2019-09-04)
DX: A41.02 Sepsis due to Methicillin resistant Staphylococcus aureus (principal); B37.1 Pulmonary candidiasis; B49 Unspecified mycosis; M60.08 Infective myositis, other site; R64 Cachexia; E87.1 Hypo-osmolality and hyponatremia; T14.90XS Injury, unspecified, sequela; V19.9XXS Pedal cyclist (driver) (passenger) injured in unspecified traffic accident, sequela; G89.4 Chronic pain syndrome; E10.65 Type 1 diabetes mellitus with hyperglycemia; Z79.4 Long term (current) use of insulin; Z96.41 Presence of insulin pump (external) (internal); Z86.711 Personal history of pulmonary embolism; Z86.79 Personal history of other diseases of the circulatory system; Z59.0 Homelessness; J98.11 Atelectasis; Z90.2 Acquired absence of lung [part of]; F11.10 Opioid abuse, uncomplicated; F19.10 Other psychoactive substance abuse, uncomplicated; D64.9 Anemia, unspecified; F41.9 Anxiety disorder, unspecified; Z68.1 Body mass index [BMI] 19.9 or less, adult
CPT/HCPCS: 36415; 70030-TC; 71045; 71260; 75989; 80307; 83605; 83735; 84100; 84443; 85025; 85730; 86850; 86900; 86901; 86920; 87040; 87070; 87077; 87086; 87205; 87400; 93005; 93307; 93880; A4663; G0378; J0692; J1815; J1885; J2248; J2270; J2405; J2543; J3370; J3490; J7030; J7040; J7050; J7060; P9016-BL; P9021; Q9967

== ENCOUNTER 2020-05-28 13:18 | Emergency (ER) | payer OTHER ==
[~2020-05-28] VITALS: Ht 170.2 cm; Wt 49.9 kg
[~2020-05-28 13:18] MED LIST: NOVOLOG INSULIN PUMP
[2020-05-28] MEDS ORDERED: INSU100C SQ (13:25)
[2020-05-28] MEDS ORDERED: INSU100V10 SQ (13:25)
[2020-05-28] MEDS: IV NORMAL SALINE 1000 ML BAG IV ONE (14:15)
[2020-05-28] MEDS ORDERED: VANCOMYCIN IV 200 ML ONE (14:22)
[2020-05-28 14:28] LABS: BASOPHILS % (AUTO) 0.3 % (0.0-2.0); EOSINOPHILS % (AUTO) 0.5 % (0.0-7.0); HEMOGLOBIN 9.5 g/dL (10.9-14.3); LYMPHOCYTES # (AUTO) 2.2 K/uL (20.0-40.0); LYMPHOCYTES % (AUTO) 33.8 % (20.5-51.5); MEAN CORPUSCULAR HEMOGLOBIN 27.2 uug (24.7-32.8); MEAN CORPUSCULAR HGB CONC 33 g/dL (32.3-35.6); MEAN CORPUSCULAR VOLUME 83.6 fL (75.5-95.3); MONOCYTES # (AUTO) 0.4 K/uL (2.0-10.0); MONOCYTES % (AUTO) 6.1 % (0.0-11.0); NEUTROPHILS # (AUTO) 3.9 K/uL (1.8-8.9); NEUTROPHILS % (AUTO) 59.3 % (38.5-71.5); PLATELET COUNT (AUTO) 468 K/uL (179-408); RED BLOOD CELL COUNT(AUTO) 3.48 MIL/uL (3.63-4.92); WHITE BLOOD COUNT (AUTO) 6.6 K/uL (3.8-11.8)
[2020-05-28] MEDS: VANCOMYCIN IV 1,000 MG in IV DEXTROSE 5% 250 ML IV ONE (14:32)
--- NOTE | 2020-05-28 14:32 | NUR ---
Pt refused to have EKG, Dr Neville notified.
[2020-05-28 14:36] LABS: CARBON DIOXIDE 26 mmol/L (21-32); CHLORIDE 99 mmol/L (98-107); CREATININE 0.7 mg/dL (0.6-1.3); GLUCOSE 291 mg/dL (74-106); POTASSIUM 5.3 mmol/L (3.5-5.1); UREA NITROGEN, BLOOD 23 mg/dL (7-18)
[2020-05-28 14:44] LABS: MAGNESIUM 1.9 mg/dL (1.8-2.4); PHOSPHOROUS 3.6 mg/dL (2.5-4.9)
[2020-05-28 14:48] LABS: ALANINE AMINOTRANSFERASE 51 U/L (14-59); ALKALINE PHOSPHATASE 119 U/L (50-136); ASPARTATE AMINOTRANSFERASE 55 U/L (15-37); BILIRUBIN,DIRECT < 0.1 mg/dL (0.0-0.2); BILIRUBIN,TOTAL 0.2 mg/dL (0.2-1.0); TOTAL PROTEIN, SERUM 7.1 g/dL (6.4-8.2)
--- NOTE | 2020-05-28 16:45 | NUR ---
IV removed. Catheter intact and site benign. Pressure and 4x4 gauze applied to site. No bleeding noted.
[2020-05-28 16:46] VITALS: BP 131/81
--- NOTE | 2020-05-28 16:56 | NUR ---
Patient does not wish to proceed with medical care recommended by ([facility]). Patient given information related to possible complications, up to and including , which could occur as a result of leaving the hospital at this time. Patient verbalizes understanding of risks involved due to leaving against medical advice. Patient has signed AMA form.
== END 2020-05-28 16:56 | disposition left against medical advice (07) ==
LOC: ER 13:18
DX: A41.9 Sepsis, unspecified organism (principal); S80.812S Abrasion, left lower leg, sequela; L08.9 Local infection of the skin and subcutaneous tissue, unspecified; R65.20 Severe sepsis without septic shock; W19.XXXS Unspecified fall, sequela; E87.5 Hyperkalemia; D64.9 Anemia, unspecified; E83.52 Hypercalcemia; E87.1 Hypo-osmolality and hyponatremia; Z86.711 Personal history of pulmonary embolism; Z86.14 Personal history of Methicillin resistant Staphylococcus aureus infection; Z87.01 Personal history of pneumonia (recurrent); E10.65 Type 1 diabetes mellitus with hyperglycemia; Z96.41 Presence of insulin pump (external) (internal); Z79.4 Long term (current) use of insulin; F11.20 Opioid dependence, uncomplicated; F17.290 Nicotine dependence, other tobacco product, uncomplicated; Z59.0 Homelessness
CPT/HCPCS: 36415; 71045; 73590; 80048; 80076; 83605; 83735; 83880; 84100; 84484; 85025; 85651; 85730; 86140; 87040 ×2; 93005; 93971; 96365; 96366; 99291; 99292; 99406; J3370; 70030-TC; A4663; J7030; J7040